=== PATIENT | female | born 1960 | race Caucasian/White ===

== ENCOUNTER 2018-04-24 16:35 | Emergency (ER) | payer MEDICARE ==
[2018-04-24 17:53] VITALS: BP 133/75
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
[2018-04-25 13:43] LABS: Hepatitis B Surface Antigen Nonreactive (Nonreactive)
[2018-04-26 13:02] LABS: Hepatitis C Antibody Nonreactive (Nonreactive)
[2018-04-26 14:43] LABS: Herpes Simplex Virus I IgG AB Positive (Negative); Herpes Simplex Virus II IgG AB Negative (Negative)
== END 2018-04-24 18:25 | disposition home or self-care (01) ==
LOC: UCCORT 16:35
DX: K14.8 Other diseases of tongue (principal)
CPT/HCPCS: 36415; 80074; 86592; 86695; 86696; 86703; 99201; G0463